=== PATIENT | male | born 1985 | race African-American/Black ===

== ENCOUNTER 2018-08-30 09:30 | Emergency (ER) | payer OTHER ==
[~2018-08-30] VITALS: Ht 185.4 cm; Wt 97.5 kg
[2018-08-30 09:59] LABS: ABSOLUTE NEUTROPHILS 8.3 thou/uL (1.4-8.2); BASOPHILS 0.3 % (0.0-2.0); EOSINOPHILS 0.3 % (0.0-3.0); HEMATOCRIT 43.1 % (42.0-52.0); HEMOGLOBIN 14.7 gm/dL (14.0-18.0); LYMPHOCYTES 5.1 % (24.0-44.0); MCHC 34.1 g/dL (28.0-37.0); MONOCYTES 9.8 % (1.0-8.0); PLATELET COUNT 318 thou/uL (150-400); POLYS 84.5 % (36.0-66.0); RBC 5.26 mil/uL (4.50-6.00); RDW 14.8 % (10.5-14.5); WBC 9.9 thou/uL (4.0-11.0)
[2018-08-30 10:11] LABS: CALCIUM 9.9 mg/dL (8.5-10.1); CREATININE 1.2 mg/dL (0.7-1.3)
[2018-08-30 10:13] LABS: POTASSIUM 3.9 mmol/L (3.5-5.1)
[2018-08-30 10:19] LABS: ALBUMIN 4.4 g/dL (3.4-5.0); TOTAL BILIRUBIN 0.6 mg/dL (<0.1-1.0); TOTAL PROTEIN 8.1 g/dL (6.4-8.2)
[2018-08-30] MEDS ORDERED: NORCO 5-325 TA1 EACH PO (10:35)
[2018-08-30] MEDS ORDERED: ONDANSETRON HCL4 M2 PO (10:35)
[2018-08-30] MEDS ORDERED: OSELB75 PO (10:35)
[2018-08-30 10:55] VITALS: BP 138/75
== END 2018-08-30 10:57 | disposition home or self-care (01) ==
LOC: ER 09:30
PROVIDERS: Physician Assistant
DX: J09.X3 Influenza due to identified novel influenza A virus with gastrointestinal manifestations (principal); R11.2 Nausea with vomiting, unspecified; M79.10 Myalgia, unspecified site

== ENCOUNTER 2020-10-09 04:35 | Emergency (ER) | payer OTHER ==
[~2020-10-09] VITALS: Ht 185.4 cm; Wt 97.5 kg
[~2020-10-09 04:35] MED LIST: NORCO 5-325 TA1 EACH PO; ONDANSETRON HCL4 M2 PO; OSELB75 PO
[2020-10-09 05:09] VITALS: BP 129/82
[2020-10-09] MEDS ORDERED: CLEOCIN HCL150 M1 PO (06:08)
[2020-10-09] MEDS ORDERED: FLEXERIL PO (06:09)
== END 2020-10-09 06:28 | disposition home or self-care (01) ==
LOC: ER 04:35
DX: S41.112A Laceration without foreign body of left upper arm, initial encounter (principal); M62.838 Other muscle spasm; F17.210 Nicotine dependence, cigarettes, uncomplicated; W25.XXXA Contact with sharp glass, initial encounter; Y93.89 Activity, other specified; Y92.89 Other specified places as the place of occurrence of the external cause; Y99.8 Other external cause status

== ENCOUNTER 2021-09-26 21:18 | Emergency (ER) | payer OTHER ==
[~2021-09-26] VITALS: Ht 185.4 cm; Wt 97.5 kg
[~2021-09-26 21:18] MED LIST changes: +CLEOCIN HCL150 M1 PO; +FLEXERIL PO
[2021-09-26] MEDS ORDERED: NOHOMEMEDICATIONS (21:27)
[2021-09-26 22:38] LABS: URINE BILIRUBIN NEGATIVE (Negative); URINE BLOOD 1+ (Negative); URINE CLARITY CLEAR; URINE COLOR YELLOW; URINE GLUCOSE-RANDOM* NEGATIVE (Negative); URINE KETONES NEGATIVE (Negative); URINE LEUKOCYTES-REFLEX NEGATIVE (Negative); URINE NITRITE-REFLEX NEGATIVE (Negative); URINE PROTEIN (DIPSTICK) TRACE (Negative); URINE SPECIFIC GRAVITY >= 1.030 (1.005-1.035); URINE UROBILINOGEN 0.2 E.U./dl (0.2-1.0)
[2021-09-26 22:47] LABS: BACTERIA-REFLEX 1-9 Few /HPF (None Seen); CASTS None Seen /LPF (None Seen); CRYSTALS None Seen /LPF (None Seen); SQUAMOUS 0-3 Few /LPF (0-3); URINE RBC 1-2 Rare /HPF (NONE SEEN); URINE WBC-REFLEX 0-5 Rare /HPF (0-5)
[2021-09-26 23:16] LABS: ABSOLUTE NEUTROPHILS 5.8 thou/uL (1.4-8.2); BASOPHILS 0.6 % (0.0-2.0); EOSINOPHILS 4.9 % (0.0-3.0); HEMATOCRIT 49.2 % (42.0-52.0); LYMPHOCYTES 11.7 % (24.0-44.0); MCH 27.4 pg (26.0-34.0); MCHC 32.4 g/dL (28.0-37.0); MCV 84.6 fL (80.0-100.0); MONOCYTES 11.6 % (1.0-8.0); PLATELET COUNT 336 thou/uL (150-400); POLYS 71.2 % (36.0-66.0); RBC 5.82 mil/uL (4.50-6.00); RDW 15.6 % (10.5-14.5); WBC 8.2 thou/uL (4.0-11.0)
[2021-09-26 23:17] LABS: CALCIUM 9.1 mg/dL (8.5-10.1); CREATININE 1.2 mg/dL (0.7-1.3); POTASSIUM 3.7 mmol/L (3.5-5.1)
[2021-09-26 23:23] LABS: ALBUMIN 3.9 g/dL (3.4-5.0); TOTAL BILIRUBIN 0.7 mg/dL (0.2-1.0); TOTAL PROTEIN 7.9 g/dL (6.4-8.2)
[2021-09-27] MEDS ORDERED: ZOFRAN ODT4 MG PO (00:25)
[2021-09-27] MEDS ORDERED: OMEPRAZOLE20 M1 PO (00:25)
[2021-09-27 00:39] VITALS: BP 131/89
== END 2021-09-27 00:40 | disposition home or self-care (01) ==
LOC: ER 21:18
PROVIDERS: Emergency Medicine
DX: R10.30 Lower abdominal pain, unspecified (principal); Z20.822 Contact with and (suspected) exposure to COVID-19